=== PATIENT | male | born 1950 | race Caucasian/White ===

== ENCOUNTER → 2024-04-27 | Outpatient (CLI) | payer OTHER, SELFPAY ==
--- NOTE | 2024-04-27 10:30 | RAD_ITS ---
HISTORY: SOB. TECHNIQUE: XR Chest 2 Views. COMPARISON: None. FINDINGS: CARDIOMEDIASTINAL BORDERS: Cardiac silhouette within normal limits in size with pacemaker in place. Mediastinal contour unremarkable with calcification of the aortic knob. LUNGS: Hyperinflation with mild linear bibasilar opacities. PLEURA: No pleural effusion or pneumothorax seen. OSSEOUS STRUCTURES: Degenerative change. RAD/Chest PA and Lateral IMPRESSION: Hyperinflated lungs with mild bibasilar scarring, likely COPD. Electronically Signed: Sada Nash MD at 8:27 EDT ,
[2024-04-27 10:38] LABS: BNP,B-Type NATRIURETIC PEPTIDE 76.1 pg/mL (0-100)
== END | disposition home or self-care (01) ==
LOC: PAVLAB 10:05
PROVIDERS: Referring Provider Internal Medicine Pulmonary Disease; Visit Provider Internal Medicine Pulmonary Disease
DX: R06.02 Shortness of breath (principal)
CPT/HCPCS: 36415; 71046; 83880